=== PATIENT | male | born 2000 | race Caucasian/White ===

== ENCOUNTER 2021-11-28 14:49 | Emergency (ER) | payer OTHER, SELFPAY ==
--- NOTE | ~2021-11-28 | XR_ITS ---
EXAMINATION: XR hand LT min 3V DATE: 11/28/2021 15:25 INDICATION: Left hand foreign body. TECHNIQUE: 5 views of left hand were obtained. COMPARISON: None. FINDINGS: Bone alignment is normal. No fracture. Joint spaces are normal. There is a nail in distal s econd digit. IMPRESSION: 1. Nail in distal second digit, most likely in the soft tissues. Reviewed, dictated and finalized at location A.
--- NOTE | ~2021-11-28 | XR_ITS ---
EXAMINATION: XR hand LT min 3V DATE: 11/28/2021 17:10 INDICATION: Left hand foreign body. TECHNIQUE: 3 views of left hand were obtained. COMPARISON: Left hand radiographs at 3:21 PM FINDINGS: Bone alignment is normal. There is a fracture of the ulnar-sided aspect of metaphysis of se cond distal phalanx. Joint spaces are normal. The nail has been removed from the second digit. IMPRESSION: 1. Fracture of the ulnar-sided aspect of metaphysis of second distal phalanx. Reviewed, dictated and finalized at location A.
[2021-11-28 15:53] VITALS: BP 122/90; PULSE 59; RESP 20; TEMP 36.6; O2SAT 99
--- NOTE | 2021-11-28 16:51 | ED.SKABFB ---
HPI - Skin/Abscess/Foreign Bdy General Chief complaint: Skin/Abscess/Foreign Body Stated complaint: nail in hand Time Seen by Provider: 11/28/21 16:37 History of Present Illness HPI narrative: 20-year-old male presents to the ER today for nail embedded into his left index distal finger. He did this while he was at work today. The nail is still protruding from his finger. It went through his work glove. Last tetanus shot unknown. Related Data Allergies Allergy/AdvReac Type Severity Reaction Status Date / Time No Known Allergies Allergy Verified 11/28/21 15:56 Review of Systems Review of Systems: CONSTITUTIONAL: Denies fever, chills, or sweats. EYES: Denies visual changes, redness, or discharge. ENT: Denies rhinorrhea, congestion, sore throat, or otalgia. CARDIOVASCULAR: Denies chest pain, palpitations, or edema. RESPIRATORY: Denies cough or dyspnea. GASTROINTESTINAL: Denies abdominal pain, nausea, vomiting, or diarrhea. GENITOURINARY: Denies dysuria or hematuria. SKIN: as per HPI MUSCULOSKELETAL:as per HPI NEUROLOGIC: Denies headache, numbness, dizziness, or weakness. PSYCHIATRIC: Denies anxiety or depression. Exam Narrative: GENERAL: Well-appearing, well-nourished, and in no acute distress. HEAD: Normocephalic, atraumatic. NECK: Supple. No adenopathy or masses. No carotid bruits or JVD CHEST: Clear to auscultation. No respiratory distress. No wheezes rales or rhonchi HEART: Regular rate and rhythm. No murmur heard. Normal peripheral pulses. ABDOMEN: Soft, nontender, nondistended, normal active bowel sounds. EXTREMITIES: Normal range of motion. No edema. SKIN: large construction nail penatrating left distal index finger distal but proximal to the nail NEURO: No focal deficits. Alert and oriented x3. PSYCH: Normal mood and affect. Course Vital Signs Vital signs: Vital Signs Temperature 36.6 C 11/28/21 15:53 Pulse Rate 59 L 11/28/21 15:53 Respiratory Rate 20 11/28/21 15:53 Blood Pressure 122/90 11/28/21 15:53 Pulse Oximetry 99 11/28/21 15:53 Oxygen Delivery Room Air 11/28/21 15:53 Temperature 36.6 C 11/28/21 15:53 Pulse Rate 59 L 11/28/21 15:53 Respiratory Rate 20 11/28/21 15:53 Blood Pressure 122/90 11/28/21 15:53 Pulse Oximetry 99 11/28/21 15:53 Oxygen Delivery Room Air 11/28/21 15:53 Procedures Foreign Body Removal Foreign Body #1: Foreign Body Removal Date: 11/28/21 Foreign Body Removal Time: 17:15 Site: left (index finger) Description of foreign body: other (construction nail) Sedation/Analgesia: none (patient declined) Technique: manual removal Confirmed by:: direct visualization and radiograph Complications: none Post-procedure exam: awake, alert Neurovascular: normal capillary fill, distal light touch sensation intact and no signs of compartment syndrome Foreign Body Removal Narrative: copius irrigation of puncture sites with sterile water after nail removed. Discharge Plan Discharge Clinical Impression: Foreign body finger, Puncture wound of finger of left hand, Fracture of distal phalanx of finger of left hand Patient Disposition: Home, Self-Care Condition: Stable Instructions: Antibiotic Form, Finger Fracture (ED), Puncture Wound (ED) Additional Instructions: Clean wound daily and apply Neosporin and bandage. Take full course of antibiotics as directed. Take Tylenol or Motrin as needed for pain. Wear the finger splint to protect the finger. Follow-up with your primary care provider in 2 to 3 days. Prescriptions: New ciprofloxacin HCl 500 mg tablet 500 mg PO Q12H 10 Days Qty: 20 0RF cephalexin 500 mg capsule 500 mg PO Q8H 10 Days Qty: 30 0RF Follow-up/Referrals: UNKNOWN,DOCTOR [Non-Staff] - (in 2-3 days for wound recheck) Stand Alone Forms: Work/School Release IP Time of Disposition: 17:58
[2021-11-28] MEDS: CIPROFLOXACIN 500 MG TAB PO (17:04)
[2021-11-28] MEDS: CEPHALEXIN 500 MG CAPSULE PO (17:04)
[2021-11-28] MEDS: TETANUS,DIPHTHERIA,AC PERTUSSIS ADULT (0.5 ML) BOOSTRIX IM (17:08)
[2021-11-28] MEDS: NEOMYCIN/POLYMYXIN/BACITRACIN OINTMENT 15 GM TUBE 1 APPLIC TOPICAL (18:22)
== END 2021-11-28 18:37 | disposition home or self-care (01) ==
PROVIDERS: Emergency Provider Nurse Practitioner Family; PCP Pediatrics
DX: S61.241A Puncture wound with foreign body of left index finger without damage to nail, initial encounter (principal); S62.631A Displaced fracture of distal phalanx of left index finger, initial encounter for closed fracture; Z23 Encounter for immunization; W29.4XXA Contact with nail gun, initial encounter
CPT/HCPCS: 29130; 73130; 90471; 90715; 99284; A9270